=== PATIENT | female | born 1975 | race American Indian/Alaskan Native ===

== ENCOUNTER 2018-03-12 08:33 | Emergency (ER) | payer OTHER ==
[2018-03-12 08:42] VITALS: BP 116/79
--- NOTE | 2018-03-12 11:16 | Emergency Department Report ---
ED Animal Bite HPI - General Chief Complaint: Animal Bite Stated Complaint: THUMB SWOLLEN Time Seen by Provider: 03/12/18 11:07 Source: patient Mode of arrival: Ambulatory Limitations: No Limitations - History of Present Illness Initial Comments: This is a 42-year-old female who presents with swelling to right thumb 3 weeks ago. Patient states she works at a [email or web address] and a known old. Her right palm. She states dog is up-to-date on vaccines so she didn't think much of it. She cleaned the wound with soap and water. Patient states swelling is worse than initial sensation. She is also complaining of pain to the touch and warmth to area. Patient denies numbness or tingling, fever, broken scan, and drainage. MD Complaint: animal bite Onset/Timin -: week(s) Right: Hand (first distal finger) Animal: dog Animal Control Notified: No Description: immunizations UTD Mechanism: bite Pain Description: intermittent Severity scale (0 -10): 4 Context: unprovoked Associated Symptoms: erythema Treatments Prior to Arrival: irrigation - Related Data Patient Tetanus UTD: No Home Medications Medication Instructions Recorded Confirmed Last Taken Omeprazole [Prilosec] 20 mg PO DAILY 03/30/14 04/06/14 04/05/14 Previous Rx's Medication Instructions Recorded Last Taken Type Docusate Sodium [Colace] 100 mg PO DAILY #30 capsule 04/09/14 Unknown Rx Ibuprofen [Motrin 800 MG tab] 800 mg PO Q6H PRN #30 tablet 04/09/14 Unknown Rx oxyCODONE /ACETAMINOPHEN [Percocet 1 tab PO Q4HR #30 tablet 04/09/14 Unknown Rx 5/325 mg] Cephalexin [Keflex] 500 mg PO Q8H #21 capsule 03/12/18 Unknown Rx Fluconazole [Diflucan TAB] 150 mg PO ONCE #1 tablet 03/12/18 Unknown Rx Allergies Allergy/AdvReac Type Severity Reaction Status Date / Time No Known Allergies Allergy Unverified 03/30/14 11:39 ED Review of Systems ROS: Stated complaint: THUMB SWOLLEN Other details as noted in HPI Constitutional: denies: chills, fever Respiratory: denies: cough, shortness of breath, wheezing Cardiovascular: denies: chest pain, palpitations Gastrointestinal: denies: abdominal pain, nausea, diarrhea Skin: other (swelling to right thumb and bruising). denies: rash, lesions Neurological: denies: headache, weakness, paresthesias Psychiatric: denies: anxiety, depression ED Past Medical Hx - Past Medical History Previous Medical History?: Yes Hx Hypertension: No Hx Congestive Heart Failure: No Hx Diabetes: No Hx GERD: Yes Hx Liver Disease: No Hx Renal Disease: No Hx Sickle Cell Disease: No Hx Seizures: No Hx Asthma: No Hx COPD: No - Surgical History Past Surgical History?: Yes Additional Surgical History: hysterectomy 2013 - Social History Smoking Status: Never Smoker Substance Use Type: None - Medications Home Medications: Home Medications Medication Instructions Recorded Confirmed Last Taken Type Omeprazole [Prilosec] 20 mg PO DAILY 03/30/14 04/06/14 04/05/14 History Docusate Sodium [Colace] 100 mg PO DAILY #30 capsule 04/09/14 Unknown Rx Ibuprofen [Motrin 800 MG tab] 800 mg PO Q6H PRN #30 tablet 04/09/14 Unknown Rx oxyCODONE /ACETAMINOPHEN [Percocet 1 tab PO Q4HR #30 tablet 04/09/14 Unknown Rx 5/325 mg] Cephalexin [Keflex] 500 mg PO Q8H #21 capsule 03/12/18 Unknown Rx Fluconazole [Diflucan TAB] 150 mg PO ONCE #1 tablet 03/12/18 Unknown Rx ED Physical Exam - General Limitations: No Limitations General appearance: alert, in no apparent distress, obese - Respiratory Respiratory exam: Present: normal lung sounds bilaterally. Absent: respiratory distress - Cardiovascular Cardiovascular Exam: Present: regular rate, normal rhythm. Absent: systolic murmur, diastolic murmur, rubs, gallop - GI/Abdominal GI/Abdominal exam: Present: soft, normal bowel sounds - Neurological Exam Neurological exam: Present: alert, oriented X3 - Psychiatric Psychiatric exam: Present: normal affect, normal mood - Skin Skin exam: Present: warm, dry, intact, normal color, erythema (swelling and erythema to right lateral 1st DIP, tenderness, ). Absent: rash, cyanosis, diaphoretic, urticaria, vesicles, petechiae, pallor, abrasion, ecchymosis ED Course Vital Signs 03/12/18 08:39 Temperature 98.2 F Pulse Rate 71 Respiratory 16 Rate Blood Pressure 116/79 O2 Sat by Pulse 99 Oximetry Critical care attestation.: If time is entered above; I have spent that time in minutes in the direct care of this critically ill patient, excluding procedure time. ED Disposition Clinical Impression: Paronychia of thumb, right, Antibiotic-induced yeast infection Dog bite Qualifiers: Encounter type: initial encounter Qualified Code(s): W54.0XXA - Bitten by dog, initial encounter Disposition: TO HOME OR SELFCARE Is pt being admited?: No Does the pt Need Aspirin: No Condition: Stable Instructions: Animal Bite (ED) Additional Instructions: Complete full course of antibiotics as prescribed. Avoid drinking alcohol while taking an antibiotics for about 24 hours after completion. Follow up with PCP or ER in 2-3 days. Return to ER if foul smelling discharge, swelling, or severe pain to wound. Prescriptions: Cephalexin [Keflex] 500 mg PO Q8H #21 capsule Fluconazole [Diflucan TAB] 150 mg PO ONCE #1 tablet Referrals: VIRGILIO CARPIO MD [Staff Physician] - 3-5 Days [facility] [Outside] - 3-5 Days Time of Disposition: 11:29 Print Language: SUDANESE ED Medical Decision Making - Medical Decision Making Patient was examined by me. Vitals are normal and patient is in no acute distress. Physical findings susceptible of paronychia of right thumb. Patient given tetanus vaccine while in the ER. Start keflex and take ibuprofen or naproxen OTC for pain. Start diflucan for suspected antibiotic induced yeast infection. Plan discussed with patient to discharge home and treat outpatient. Patient discharged home in stable condition. Follow up with PCP in 2-3 days.
[2018-03-12] MEDS ORDERED: BOOSTRIX IM ONE (11:26)
== END 2018-03-12 11:47 | disposition home or self-care (01) ==
LOC: ED 08:33
DX: L03.011 Cellulitis of right finger (principal); B37.9 Candidiasis, unspecified; W54.0XXA Bitten by dog, initial encounter; Y93.89 Activity, other specified; Y92.89 Other specified places as the place of occurrence of the external cause; Y99.8 Other external cause status
CPT/HCPCS: 90471; 90715

== ENCOUNTER 2019-01-23 06:14 | Day surgery (SDC) | payer OTHER ==
[2019-01-23] MEDS ORDERED: WATER FOR IRRIG STERILE IR ONE (07:32)
[2019-01-23] MEDS ORDERED: WATER FOR IRRIG STERILE ONE (07:32)
--- NOTE | 2019-01-23 07:34 | Anesthesia Consultation ---
Anesthesia Consult and Med Hx Date of service: 01/23/19 - Airway Anesthetic Teeth Evaluation: Good ROM Head & Neck: Adequate Mental/Hyoid Distance: Adequate Mallampati Class: Class II Intubation Access Assessment: Probably Good - Pre-Operative Health Status ASA Pre-Surgery Classification: ASA2 Proposed Anesthetic Plan: MAC - Pulmonary Hx Smoking: No Hx Asthma: No COPD: No Hx Pneumonia: No - Cardiovascular System Hx Hypertension: No - Central Nervous System Hx Neuromuscular Disorder: No Hx Seizures: No CVA: No - Gastrointestinal Hx Gastroesophageal Reflux Disease: Yes (controlled with prilosec, dysphagea) - Endocrine Hx Renal Disease: No Hx End Stage Renal Disease: No Hx Liver Disease: No Hx Insulin Dependent Diabetes: No Hx Non-Insulin Dependent Diabetes: No Hx Thyroid Disease: No - Hematic Hx Anemia: Yes (H/H: 9.8/27.2) Hx Sickle Cell Disease: No - Other Systems Hx Alcohol Use: No Hx Substance Use: No Hx Cancer: No
--- NOTE | 2019-01-23 07:34 | Anesthesia Day of Surgery ---
Anesthesia Day of Surgery - Day of Surgery Patient Examined: Yes Patient H&P Reviewed: Yes Beta Blockers: Yes
[2019-01-23] MEDS ORDERED: DIPRIVAN 10 MG/ML IV ONE ×2 (07:38)
[2019-01-23] MEDS ORDERED: XYLOCAINE 2% INFILTRATI ONE (07:39)
[2019-01-23] MEDS ORDERED: NACL 0.9% 1000 ML 1,000 ML IV SCH (08:00)
--- NOTE | 2019-01-23 08:56 | Operative Report ---
Operative Report Operative Report: DOS: 01/23/19 SURGEON: Smith Hadley MD EGD with biopsy and dilation REPORT PREOPERATIVE DIAGNOSIS and POSTOPERATIVE DIAGNOSIS: Esophageal dysphagia ESTIMATED BLOOD LOSS: minimal DESCRIPTION OF PROCEDURE: A high-resolution EGD scope was passed through the oropharynx, esophagus, stomach, and second portion of duodenum. The scope was carefully withdrawn. Retroflexion was performed in the stomach. At the end of the procedure, the scope was cleaned using normal technique. Vital signs monitored continuously throughout. SEDATION: Provided by Anesthesiology Services. COMPLICATIONS: None. FINDINGS: * No gross lesions entire duodenum * Moderate gastritis with erythema in the gastric antrum and body, Biopsies were taken to rule out H. Pylori infection. A total of 5 biopsies were taken, 2 from the antrum, 1 from the incisura, 2 from the body. 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 * Additionally, esophageal dilation was performed using 54 Fr Savory dilator. A guidewire was placed through the scope, the scope was then withdrawn, the Savory was passed over the dilator with mild resistance. The dilator was withdrawn, and then the scope was reinserted. The esophagus demonstrated to perforation nor tears RECOMMENDATIONS: * F/u path results * Continue GERD lifestyle modification
--- NOTE | 2019-01-23 09:03 | Operative Report ---
Operative Report Operative Report: DOS: 01/23/19 SURGEON: Smith Hadley MD COLONOSCOPY REPORT PREOPERATIVE AND POSTOPERATIVE DIAGNOSIS: FH colon cancer DESCRIPTION OF PROCEDURE: The colonoscope was passed to the terminal ileum as identified by the ileal tissue. Scope was carefully withdrawn. Retroflexion was performed in the rectum. At the end of procedure, the scope was cleaned using normal technique. Vital signs monitored continuously throughout. SEDATION: Provided by An[facility]iology [facility]. Quality of the prep was good COMPLICATIONS: None. ESTIMATED BLOOD LOSS: none FINDINGS: The entire colon was normal RECOMMENDATIONS: Repeat high risk screening colonoscopy in 5 years
[2019-01-23 09:31] VITALS: BP 131/74
[2019-01-23] MEDS ORDERED: XYLOCAINE MPF 2% ONE (10:00)
== END 2019-01-23 06:15 | disposition home or self-care (01) ==
LOC: GIO 06:14
PROVIDERS: ATTEND Student in an Organized Health Care Education/Training Program
DX: Z12.11 Encounter for screening for malignant neoplasm of colon (principal); K29.50 Unspecified chronic gastritis without bleeding; K21.0 Gastro-esophageal reflux disease with esophagitis; K31.89 Other diseases of stomach and duodenum; B96.81 Helicobacter pylori [H. pylori] as the cause of diseases classified elsewhere; Z80.0 Family history of malignant neoplasm of digestive organs; Z79.899 Other long term (current) drug therapy; Z90.710 Acquired absence of both cervix and uterus; Z98.890 Other specified postprocedural states
CPT/HCPCS: 43239; 43248; 45378; 88305; 88342; C1769; J2704; J7030; C1726

== ENCOUNTER 2020-07-01 11:15 | Outpatient (CLI) | payer OTHER ==
--- NOTE | 2020-07-01 11:54 | XRay Report ---
CHEST 2 VIEWS INDICATION / CLINICAL INFORMATION: Unspecified asthma. COMPARISON: None available. FINDINGS: SUPPORT DEVICES: None. HEART / MEDIASTINUM: The heart size and pulmonary vasculature are normal. LUNGS / PLEURA: No significant pulmonary or pleural abnormality. No pneumothorax. ADDITIONAL FINDINGS: No significant additional findings. IMPRESSION: No acute findings. Signer Name: Leonid López MD Signed: 07/01/2020 11:50 AM Workstation Name: [id number]
[2020-07-01 13:58] LABS: ABG Base Excess -4.2 mmol/L (-2.0-3.0); ABG HCO3 19.6 mmol/L (20.0-26.0); ABG Oxygen Saturation 97.6 % (95.0-99.0); ABG PH 7.404 pH Units (7.350-7.450); ABG PO2 98.4 mm Hg (80.0-90.0)
[2020-07-01 13:59] LABS: ABG Methemoglobin 0.3 % (0.0-1.5)
== END 2020-07-01 11:16 | disposition home or self-care (01) ==
LOC: XRAY 11:15
PROVIDERS: ATTEND Internal Medicine
DX: J45.909 Unspecified asthma, uncomplicated (principal); K21.9 Gastro-esophageal reflux disease without esophagitis
CPT/HCPCS: 36600; 71046; 82803

== ENCOUNTER 2021-03-21 10:43 | Emergency (ER) | payer OTHER ==
[2021-03-21 11:20] VITALS: BP 116/73
--- NOTE | 2021-03-21 11:26 | Emergency Department Report ---
ED Chest Pain HPI - General Chief Complaint: Chest Pain Stated Complaint: CP Time Seen by Provider: 03/21/21 11:19 Source: patient Mode of arrival: Ambulatory Limitations: No Limitations - History of Present Illness Initial Comments: The patient was evaluated in the emergency department for symptoms described in the history of present illness. He/she was evaluated in the context of the global COVID-19 pandemic, which necessitated consideration that the patient might be at risk for infection with the virus that causes COVID-19. Institutional protocols and algorithms that pertain to the evaluation of patients at risk for COVID-19 are in a state of rapid change based on information released by regulatory bodies including the CDC and federal and [facility] organizations. These policies and algorithms were followed during the patient's care in the emergency department. Please note that these policies, procedures and recommendations changed on a rapid basis. 45-year-old -Prydeinig female presents to the emergency room for 2-day history of chest pain and chest tightness. Patient states is worse when she coughs or takes a deep breath. Patient reports she has a history of severe allergies and asthma and is being worked up for lupus as she has had a positive MISBAH. Patient is unvaccinated. Patient reports that she has acid reflux and is compliant with her omeprazole. She is currently followed by [facility]. She denies any nausea no vomiting no diarrhea. She denies any lower leg edema does not take control has had a hysterectomy since 2013. Complaint: chest pain Onset/Timin -: days(s) Onset: during exertion Pain Location: substernal Pain Radiation: none Severity: moderate Severity scale (0 -10): 6 Quality: tightness Consistency: intermittent Improves With: nothing Worsens With: nothing re: denies: nausea, vomting, diaphoresis, dyspnea, sense of impending doom Other Symptoms: cough. denies: fever, syncope, rash, acid taste in mouth, leg swelling, palpitations, burping, other Treatments Prior to Arrival: none - Related Data On Oral Contraceptives: No Home Medications Medication Instructions Recorded Confirmed Last Taken Omeprazole [Prilosec] 20 mg PO DAILY 03/30/14 01/23/19 01/16/19 Loratadine 10 mg PO DAILY 01/23/19 01/23/19 01/18/19 Singulair 10 mg PO DAILY 01/23/19 01/23/19 01/16/19 Allergies Allergy/AdvReac Type Severity Reaction Status Date / Time lamotrigine Allergy Hives Verified 03/21/21 11:20 Heart Score - HEART Score History: Slightly suspicious EKG: Normal Age: < 45 Risk factors: 1-2 risk factors Troponin: < normal limit HEART Score: 1 - EKG Read Time Time EKG Completed: 10:50 EKG Read Time: 10:54 ED Review of Systems ROS: Stated complaint: CP Other details as noted in HPI ED Past Medical Hx - Past Medical History Hx Hypertension: No Hx Congestive Heart Failure: No Hx Diabetes: No Hx GERD: Yes Hx Liver Disease: No Hx Renal Disease: No Hx Sickle Cell Disease: No Hx Seizures: No Hx Asthma: No Hx COPD: No - Surgical History Additional Surgical History: hysterectomy 2013 - Social History Smoking Status: Never Smoker - Medications Home Medications: Home Medications Medication Instructions Recorded Confirmed Last Taken Type Omeprazole [Prilosec] 20 mg PO DAILY 03/30/14 01/23/19 01/16/19 History Loratadine 10 mg PO DAILY 01/23/19 01/23/19 01/18/19 History Singulair 10 mg PO DAILY 01/23/19 01/23/19 01/16/19 History ED Physical Exam - General Limitations: No Limitations ED Course Vital Signs 03/21/21 11:17 Temperature 97.8 F Pulse Rate 75 Respiratory 16 Rate Blood Pressure 116/73 [Right] O2 Sat by Pulse 98 Oximetry JUAN FRANCISCO score - Juan Francisco Score Age > 65: (0) No Aspirin use within the Past 7 Days: (0) No 3 or more CAD Risk Factors: (0) No 2 or more Angina events in past 24 hrs: (0) No Known CAD with more than 50% Stenosis: (1) Yes ST Deviation Greater than 0.5mm: (0) No ED Medical Decision Making - Lab Data Result diagrams: 03/21/21 11:40 03/21/21 11:40 - EKG Data EKG shows normal: sinus rhythm Rate: normal - EKG Data Interpretation: normal EKG - Radiology Data Radiology results: report reviewed [facility] [address] [place] [address] XRay Report Signed Patient: SIRIA WEINER V MR#: [id number] : 1975 Acct:[id number] Age/Sex: 45 / F ADM Date: 03/21/21 Loc: ED Attending Dr: Ordering Physician: LAM DHILLON Date of Service: 03/21/21 Procedure(s): XR chest routine 2V Accession Number(s): [id number] cc: LAM DHILLON Fluoro Time In Minutes: CHEST 2 VIEWS INDICATION / CLINICAL INFORMATION: chest pain worst with cough. COMPARISON: 07/01/2020 FINDINGS: SUPPORT DEVICES: None. HEART / MEDIASTINUM: No significant abnormality. LUNGS / PLEURA: No significant pulmonary or pleural abnormality. No pneumothorax. ADDITIONAL FINDINGS: No significant additional findings. IMPRESSION: 1. No acute findings. Signer Name: Israel Negrete MD Signed: 03/21/2021 12:29 PM Workstation Name: [id number] Transcribed By: SONIA Dictated By: Israel Negrete MD Electronically Authenticated By: Israel Negrete MD Signed Date/Time: 03/21/211228 DD/ 28 TD/TT: Print Cancel - Medical Decision Making 45-year-old -Prydeinig female presents to the emergency room for 2-day history of chest pain and chest tightness. Patient states is worse when she coughs or takes a deep breath. Patient reports she has a history of severe allergies and asthma and is being worked up for lupus as she has had a positive MISBAH. Patient is unvaccinated. Patient reports that she has acid reflux and is compliant with her omeprazole. She is currently followed by [facility]. She denies any nausea no vomiting no diarrhea. She denies any lower leg edema does not take control has had a hysterectomy since 2013. Cardiac work-up is ordered with 2 troponins. Patient's chest x-ray is within normal limits no acute findings. CBC CMP and 1 troponin are all within normal limits. Patient states that she has to go pick her kids up and she cannot wait for second troponin. EKG is within normal limits. I feel patient is a low risk for any cardiac event at this time. I did discuss with patient she needs to follow-up with her primary care provider as well as referring her to her can striper. Patient states she understands the plan. Critical care attestation.: If time is entered above; I have spent that time in minutes in the direct care of this critically ill patient, excluding procedure time. ED Disposition Clinical Impression: Acute nonspecific chest pain with low risk of coronary artery disease Disposition: HOME / SELF CARE / HOMELESS Is pt being admited?: No Does the pt Need Aspirin: No Condition: Stable Instructions: Chest Pain (ED), Nonspecific Chest Pain, Adult, [id number] Additional Instructions: Chest x-ray is negative for any acute findings. Lab work are stable no signs of cardiac . EKG is within normal limits. I recommend to follow-up with your primary care provider and cardiology. Continue with all your chronic medications. Referrals: PRIMARY CARE, [Primary Care Provider] - 3-5 Days Your, primary care provider [Other] - 3-5 Days [facility] [Provider Group] - 3-5 Days Forms: Work/School Release Form(ED) Time of Disposition: 14:14
--- NOTE | 2021-03-21 12:34 | XRay Report ---
CHEST 2 VIEWS INDICATION / CLINICAL INFORMATION: chest pain worst with cough. COMPARISON: 07/01/2020 FINDINGS: SUPPORT DEVICES: None. HEART / MEDIASTINUM: No significant abnormality. LUNGS / PLEURA: No significant pulmonary or pleural abnormality. No pneumothorax. ADDITIONAL FINDINGS: No significant additional findings. IMPRESSION: 1. No acute findings. Signer Name: Israel Negrete MD Signed: 03/21/2021 12:29 PM Workstation Name: [id number]
[2021-03-21 12:55] LABS: Basophils % (Auto) 0.3 % (0.0-1.8); Eosinophils # (Auto) 0.1 K/mm3 (0.0-0.4); Eosinophils % (Auto) 0.6 % (0.0-4.3); Hematocrit 34.1 % (30.3-42.9); Hemoglobin 11.3 gm/dl (10.1-14.3); Lymphocytes % (Auto) 32.9 % (13.4-35.0); Mean Corpuscular HGB Conc 33 % (30-34); Mean Corpuscular Volume 88 fl (79-97); Monocytes # (Auto) 0.8 K/mm3 (0.0-0.8); Monocytes % (Auto) 9.4 % (0.0-7.3); Platelet Count 291 K/mm3 (140-440); Red Blood Count 3.87 M/mm3 (3.65-5.03); Red Cell Distribution Width 12.4 % (13.2-15.2)
[2021-03-21 13:04] LABS: Alanine Aminotransferase 19 units/L (7-56); Albumin 4.2 g/dL (3.9-5); Blood Urea Nitrogen 11 mg/dL (7-17); Calcium 9.2 mg/dL (8.4-10.2); Hemolysis Index 51
[2021-03-21 13:22] LABS: BUN/Creatinine Ratio 16
--- NOTE | 2021-03-22 11:38 | Electrocardiograph Report ---
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
== END 2021-03-21 14:21 | disposition home or self-care (01) ==
LOC: ED 10:43
DX: R07.9 Chest pain, unspecified (principal); K21.9 Gastro-esophageal reflux disease without esophagitis; Z98.890 Other specified postprocedural states; Z88.8 Allergy status to other drugs, medicaments and biological substances
CPT/HCPCS: 36415; 71046; 80053; 83690; 84484; 85025; 93005; 99283

== ENCOUNTER 2021-10-19 08:15 | Outpatient (CLI) | payer OTHER ==
[2021-10-19 09:32] LABS: ABG Base Excess -3.7 mmol/L (-2.0-3.0); ABG HCO3 21.2 mmol/L (20.0-26.0); ABG PCO2 38.1 mm Hg; ABG PH 7.364 pH Units (7.350-7.450)
[2021-10-19 09:33] LABS: ABG Methemoglobin 0.5 % (0.0-1.5)
[2021-10-19 09:36] LABS: Hematocrit 37.5 % (30.3-42.9); Hemoglobin 13.2 gm/dl (10.1-14.3); Mean Corpuscular HGB Conc 35 % (30-34); Mean Corpuscular Volume 88 fl (79-97); Platelet Count 294 K/mm3 (140-440); Red Blood Count 4.24 M/mm3 (3.65-5.03); Red Cell Distribution Width 12.1 % (13.2-15.2)
[2021-10-19 09:51] LABS: Alanine Aminotransferase 25 units/L (7-56); BUN/Creatinine Ratio 20; Blood Urea Nitrogen 14 mg/dL (7-17); HDL Cholesterol 41 mg/dL (40-59); Hemolysis Index 1; LDL Cholesterol,Direct 132 mg/dL (50-130)
--- NOTE | 2021-10-19 10:21 | XRay Report ---
CHEST 2 VIEWS INDICATION / CLINICAL INFORMATION: Z86.16 J45.909. COMPARISON: 03/21/2021 FINDINGS: SUPPORT DEVICES: None. HEART / MEDIASTINUM: No significant abnormality. LUNGS / PLEURA: No significant pulmonary or pleural abnormality. No pneumothorax. ADDITIONAL FINDINGS: No significant additional findings. IMPRESSION: 1. No acute findings. Signer Name: Perry Kulkarni MD Signed: 10/19/2021 10:16 AM Workstation Name: [email or web address]
--- NOTE | 2021-10-19 11:50 | Vascular Lab Report ---
DUPLEX DOPPLER LOWER EXTREMITY VEINS, BILATERAL INDICATION / CLINICAL INFORMATION: Z86.16 PAIN IN LEGS. TECHNIQUE: Duplex doppler imaging was performed through the veins of both lower extremities using adalberto ous compression and other maneuvers. COMPARISON: None available. FINDINGS: RIGHT COMMON FEMORAL VEIN: Negative. RIGHT FEMORAL VEIN: Negative. RIGHT POPLITEAL VEIN: Negative. RIGHT CALF VEINS: Negative. LEFT COMMON FEMORAL VEIN: Negative. LEFT FEMORAL VEIN: Negative. LEFT POPLITEAL VEIN: Negative. LEFT CALF VEINS: Negative. ADDITIONAL FINDINGS: None. IMPRESSION: 1. No sonographic evidence for DVT in either lower extremity. Scribed by: Madelaine Carson RDMS, MYLENE, ANTOINETTE Scribed: 10/19/2021 10:03 AM I have reviewed the images, agree with this report, and edited this report as needed. Signer Name: Wong Garcia MD Signed: 10/19/2021 11:45 AM Workstation Name: [id number]
--- NOTE | 2021-10-19 12:07 | Cat Scan Report ---
CTA CHEST WITH CONTRAST INDICATION / CLINICAL INFORMATION: R09.02 HYPOXEMIA/HX COVID OMNI 350 100 ML. TECHNIQUE: Axial CT images were obtained through the chest after injection of IV contrast. 3 plane OK P and/or 3D reconstructions were produced. All CT scans at this location are performed using CT dose reduction for ALARA by means of automated exposure control. COMPARISON: None available. FINDINGS: PULMONARY ARTERIES: No pulmonary emboli. THORACIC AORTA: No significant abnormality. HEART: No significant abnormality. CORONARY ARTERY CALCIFICATION: None. MEDIASTINUM / YOVANA: No significant abnormality. PLEURA: No pleural effusion. No pneumothorax. LUNGS: No acute air space or interstitial disease. ADDITIONAL FINDINGS: Small amount of air is noted within the distal left brachiocephalic vein, presum ably related to injection. UPPER ABDOMEN: No acute findings. SKELETAL STRUCTURES: No significant osseous abnormality. IMPRESSION: 1. No CT evidence for pulmonary embolism. 2. No acute findings. Signer Name: Jose G Thompson MD Signed: 10/19/2021 12:03 PM Workstation Name: [email or web address]
== END 2021-10-19 08:16 | disposition home or self-care (01) ==
LOC: CT 08:15
PROVIDERS: ATTEND Internal Medicine
DX: J45.909 Unspecified asthma, uncomplicated (principal); R09.02 Hypoxemia; R06.00 Dyspnea, unspecified; K21.9 Gastro-esophageal reflux disease without esophagitis; Z86.16 Personal history of COVID-19
CPT/HCPCS: 36415; 36600; 71046; 71275; 80053; 80061; 82803; 84436; 84443; 85027; 93970; Q9967